=== PATIENT | female | born 1995 | race African-American/Black ===

== ENCOUNTER 2016-11-27 13:57 | Emergency (ER) | payer SELFPAY ==
[~2016-11-27] VITALS: Ht 162.6 cm; Wt 129.0 kg
[~2016-11-27 13:57] MED LIST: BACT800T5 PO; PENI500T PO
[2016-11-27 13:59] VITALS: BP 134/74; PULSE 96; RESP 20; TEMP 98; O2SAT 99
[2016-11-27 15:29] LABS: BLOOD, URINE NEG (NEG); GLUCOSE,URINE NEG (NEG); KETONE, URINE NEG (NEG); MUCUS URINE MOD /lpf (OCC); NITRITE,URINE NEG (NEG); PH, URINE 5.5 (5.0-8.5); SQUAMOUS EPITHELIAL CELL URINE 1 /hpf (0-5); URINE COLOR YELLOW (YELLW/STRAW)
[2016-11-27 15:31] LABS: COMMENT (UR) CULT NOT INDICATED; CULTURE IF INDICATED CULT NOT INDICATED
[2016-11-27] MEDS ORDERED: LIDOCAINE 1%/EPINEPHrine 1:100,000 SOLN 20 ML VIAL INFIL ONE (16:45)
[2016-11-27] MEDS ORDERED: LIDOCAINE HCL 1% 50 ML VIAL IM ONE (16:45)
[2016-11-27] MEDS ORDERED: AZITHROMYCIN PWD FOR SUSP 1 GM PACKET PO ONE (16:45)
--- NOTE | 2016-11-27 16:49 | PD ---
HPI Chief Complaint: Transportation Dispatcher Problem/Complaint Time Seen by Provider: 16:46 Travel History International Travel<30 days: No Contact w/Intl Traveler<30days: No Traveled to known affect area: No History of Present Illness HPI 21-year-old female presents to ED for evaluation of 3 day history of vaginal itching and white vaginal discharge. Patient states onset gradual. She endorses unprotected sex with a single male partner approximately 2 weeks ago. She endorses last menstrual period approximately one week ago. Patient also complains of pain and swelling under the right axilla. She states that she's had similar "bumps" in the past. She states that she applied warm compresses but has been unable to improve her symptoms. She denies fever, chills, limitations to range of motion or weakness of the right arm. She denies chronic health problems, takes no daily medications. NKDA. PFSH Past Medical History Medical History: Denies Significant Hx Cardiovascular Problems: No Psychiatric: No Seizures: No Thyroid Disease: No Ulcer: No ?: Unknown LMP: 11/20/16 Past Surgical History Other Surgery: Yes (PINS IN HIPS) Social History Alcohol Use: Yes (social) Tobacco Use: No Substance Use: Yes (marijuana 2 hrs ago) Allergies-Medications (Allergen,Severity, Reaction): Coded Allergies: No Known Allergies (Verified , 11/27/16) Reported Meds & Prescriptions Reported Meds & Active Scripts Active Clindamycin (Clindamycin HCl) 300 Mg Cap 300 Mg PO TID Review of Systems Except as stated in HPI: all other systems reviewed are Neg Physical Exam Narrative GENERAL: Well-nourished, well-developed obese black female in no acute distress. SKIN: Warm and dry. SKIN: There is an indurated area in the right axilla which measures about 2.5 cm in diameter. It is fluctuant but there is no pointing or drainage. There is a zone of inflammation around it but no lymphangitis. HEAD: Normocephalic. EYES: No scleral icterus. No injection or drainage. NECK: Supple, trachea midline. No JVD or lymphadenopathy. CARDIOVASCULAR: Regular rate and rhythm without murmurs, gallops, or rubs. RESPIRATORY: Breath sounds equal bilaterally. No accessory muscle use. GASTROINTESTINAL: Abdomen protuberant, soft, non-tender, nondistended. No suprapubic tenderness. Active bowel sounds. GENITOURINARY: Normal external genitalia without lesions or erythema. Mild fishy odor. Vaginal vault without blood. Thin white drainage. Cervical os was closed without drainage. No cervical motion tenderness. Uterus nontender and nonenlarged. Bilateral adnexa nontender without masses. MUSCULOSKELETAL: No cyanosis, or edema. BACK: Nontender without obvious deformity. No CVA tenderness. Data Data Last Documented VS Vital Signs Date Time Temp Pulse Resp B/P Pulse Ox O2 Delivery O2 Flow Rate FiO2 11/27/16 17:46 91 17 132/73 97 Room Air 11/27/16 13:59 98.0 Orders Urinalysis - C+S If Indicated (11/27/16 14:52) Ed Urine Pregnancytest Poc (11/27/16 14:52) Gc And Chlamydia Pcr (11/27/16 16:43) Wet Prep Profile (11/27/16 16:43) Azithromycin Powd Pack (Zithromax Powd P (11/27/16 16:45) Lidocaine 1% Inj (50 Ml) (Xylocaine 1% I (11/27/16 16:45) Ceftriaxone Inj (Rocephin Inj) (11/27/16 16:45) Wound Culture And Gram Stain (11/27/16 16:43) Lidocai-Epi 1%-1:100,000 Inj (Xylocaine- (11/27/16 16:45) Labs Laboratory Tests Test 11/27/16 11/27/16 15:00 17:16 Urine Color YELLOW Urine Turbidity CLEAR Urine pH 5.5 Urine Specific [place] 1.028 Urine Protein TRACE mg/dL Urine Glucose (UA) NEG mg/dL Urine Ketones NEG mg/dL Urine Occult Blood NEG Urine Nitrite NEG Urine Bilirubin NEG Urine Urobilinogen LESS THAN 2.0 MG/DL Urine Leukocyte Esterase NEG Urine RBC 1 /hpf Urine WBC 2 /hpf Urine Squamous Epithelial 1 /hpf Cells Urine Mucus MOD /lpf Microscopic Urinalysis Comment CULT NOT INDICATED Clue Cells (Wet Prep) NONE SEEN Vaginal Trichomonas (Wet Prep) NONE SEEN Vaginal Yeast (Wet Prep) NONE SEEN MDM Medical Decision Making Medical Screen Exam Complete: Yes Emergency Medical Condition: Yes Differential Diagnosis Folliculitis versus furuncle versus carbuncle versus abscess versus STI versus UTI versus versus other Narrative Course 21-year-old female presents to ED for evaluation of 3 day history of vaginal itching and white vaginal discharge. Patient states onset gradual. She endorses unprotected sex with a single male partner approximately 2 weeks ago. LMP 1 week ago Patient also complains of pain and swelling under the right axilla. Denies fever, chills, limitations to range of motion or weakness of the right arm. Vitals reviewed. Physical exam reveals a nontoxic-appearing black female in no acute distress. There is a 2 cm abscess under the right axilla. No pointing or drainage. The abdomen is soft and nontender. Pelvic exam reveals a thin amount of white, fishy discharge. No adnexal or cervical motion tenderness. Abscess I&D was performed. Please see my procedure note for details. Patient was empirically treated for GC and chlamydia. No indication for culture of the UA. Wet prep was also negative, bad table noted for clue cells. We'll treat the abscess with clindamycin. I discussed this plan of care with Dr. Birmingham. Discussed the results of the workup with the patient. He is instructed to take the antibiotics as prescribed, return to the ED for packing removal in 2 days, follow up with the emergency room in 7 days for test of cure and full STD screening. She indicated understanding of the instructions. She is amenable to plan of care. She is stable and discharged home. Procedures Procedure Narrative INCISION AND DRAINAGE OF ABSCESS: The area was prepped and was sterilely draped. A subcutaneous wheal of 1% Xylocaine with epinephrine with a total number 3 mL was used to anesthetize the area properly. A number 11 scalpel was used to make a 1-cm incision across the area of the abscess. The abscess was drained, complex loculations were broken down, and irrigated with normal saline. Cultures were obtained. Quarter inch iodoform packing was placed in the wound. Sterile dressing applied. Patient advised to have packing removed in two days. Diagnosis Primary Impression: Abscess Referrals: Primary Care Physician Patient Instructions: Abscess Incision and Drainage (ED), General Instructions Additional Instructions: Rest, hydrate. Take all antibiotics as prescribed, even if her symptoms resolve. Return to the ED for packing removal and wound recheck in 2 days. Follow-up with the health department in one week for test of cure and full STD screening. Follow-up with primary care provider this week. Return to the ED for any urgent or emergent medical condition. Med/Other Pt SpecificInfo: Prescription(s) given Scripts Clindamycin 300 Mg [id number] Mg PO TID #21 CAP Ref 0 Prov:Giovanna Birmingham MD 11/27/16 Disposition: 01 DISCHARGE HOME Condition: Stable Samira Watson Nov 27, 2016 16:49
[2016-11-27] MEDS ORDERED: CLIN1CAP6 PO (17:37)
[2016-11-27 17:46] VITALS: BP 132/73; PULSE 91; RESP 17; O2SAT 97
--- NOTE | 2016-11-27 17:46 | PD ---
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 Data Data Last Documented VS Vital Signs Date Time Temp Pulse Resp B/P Pulse Ox O2 Delivery O2 Flow Rate FiO2 11/27/16 13:59 98.0 96 20 134/74 99 Room Air Orders Urinalysis - C+S If Indicated (11/27/16 14:52) Ed Urine Pregnancytest Poc (11/27/16 14:52) Gc And Chlamydia Pcr (11/27/16 16:43) Wet Prep Profile (11/27/16 16:43) Azithromycin Powd Pack (Zithromax Powd P (11/27/16 16:45) Lidocaine 1% Inj (50 Ml) (Xylocaine 1% I (11/27/16 16:45) Ceftriaxone Inj (Rocephin Inj) (11/27/16 16:45) Wound Culture And Gram Stain (11/27/16 16:43) Lidocai-Epi 1%-1:100,000 Inj (Xylocaine- (11/27/16 16:45) Labs Laboratory Tests Test 11/27/16 11/27/16 15:00 17:16 Urine Color YELLOW Urine Turbidity CLEAR Urine pH 5.5 Urine Specific [place] 1.028 Urine Protein TRACE mg/dL Urine Glucose (UA) NEG mg/dL Urine Ketones NEG mg/dL Urine Occult Blood NEG Urine Nitrite NEG Urine Bilirubin NEG Urine Urobilinogen LESS THAN 2.0 MG/DL Urine Leukocyte Esterase NEG Urine RBC 1 /hpf Urine WBC 2 /hpf Urine Squamous Epithelial 1 /hpf Cells Urine Mucus MOD /lpf Microscopic Urinalysis Comment CULT NOT INDICATED Clue Cells (Wet Prep) NONE SEEN Vaginal Trichomonas (Wet Prep) NONE SEEN Vaginal Yeast (Wet Prep) NONE SEEN MDM Supervised Visit with [facility]: Yes Diagnosis Primary Impression: Abscess Referrals: Primary Care Physician Patient Instructions: General Instructions, Abscess Incision and Drainage (ED) Departure Forms: Tests/Procedures Additional Instruction: Rest, hydrate. Take all antibiotics as prescribed, even if her symptoms resolve. Return to the ED for packing removal and wound recheck in 2 days. Follow-up with the health department in one week for test of cure and full STD screening. Follow-up with primary care provider this week. Return to the ED for any urgent or emergent medical condition. Scripts Clindamycin 300 Mg [id number] Mg PO TID #21 CAP Ref 0 Prov:Giovanna Birmingham MD 11/27/16 Disposition: 01 DISCHARGE HOME Condition: Stable Giovanna Birmingham MD Nov 27, 2016 17:46
[2016-11-27 20:12] LABS: CHLAMYDIA PCR NOT DETECTED (NOT DETECT); NEISSERIA PCR NOT DETECTED (NOT DETECT)
== END 2016-11-27 17:47 | disposition home or self-care (01) ==
LOC: NEPA 13:57
DX: L02.411 Cutaneous abscess of right axilla (principal); B95.61 Methicillin susceptible Staphylococcus aureus infection as the cause of diseases classified elsewhere
CPT/HCPCS: 10061; 81001; 84703; 86403; 87070; 87077; 87185; 87186; 87210; 87491; 87591; 96372; 99283; J0696; 87205

== ENCOUNTER 2016-11-29 09:11 | Emergency (ER) | payer SELFPAY ==
[~2016-11-29] VITALS: Ht 162.6 cm; Wt 129.0 kg
[~2016-11-29 09:11] MED LIST changes: -BACT800T5 PO; +CLIN1CAP6 PO; -PENI500T PO
[2016-11-29 09:12] VITALS: BP 150/80; PULSE 73; RESP 16; TEMP 98.2; O2SAT 98
--- NOTE | 2016-11-29 11:16 | PD ---
HPI Chief Complaint: Wound/Suture/Staple Re-Check Time Seen by Provider: 11:12 Travel History International Travel<30 days: No Contact w/Intl Traveler<30days: No Traveled to known affect area: No History of Present Illness HPI Patient comes in for recheck of abscess right axilla I&D 2 days ago. Patient denies any complaints or problems with it. States it is pain is improved and is only minimally tender now. Patient denies any fevers. PFSH Past Medical History Cardiovascular Problems: No Psychiatric: No Seizures: No Thyroid Disease: No Ulcer: No ?: Not Past Surgical History Other Surgery: Yes (PINS IN HIPS) Social History Alcohol Use: Yes (social) Tobacco Use: No Substance Use: Yes (marijuana 2 hrs ago) Allergies-Medications (Allergen,Severity, Reaction): Coded Allergies: No Known Allergies (Verified , 11/27/16) Reported Meds & Prescriptions Reported Meds & Active Scripts Active Clindamycin (Clindamycin HCl) 300 Mg Cap 300 Mg PO TID Review of Systems Except as stated in HPI: all other systems reviewed are Neg Physical Exam Narrative GENERAL: Well-developed, overly nourished, in no acute distress, and non-ill appearing. SKIN: Warm and dry. Well healing abscess to the right axilla packing in place. Packing was removed with no drainage noted. Minimally tender. Minimal erythematous. HEAD: Atraumatic. Normocephalic. EYES: Pupils equal and round. EOMI. No scleral icterus. No injection or drainage. ENT: No nasal bleeding or discharge. Mucous membranes pink and moist. NECK: Trachea midline. Supple. No nuclear rigidity. RESPIRATORY: No accessory muscle use. No respiratory distress. MUSCULOSKELETAL: No obvious deformities. No clubbing. No cyanosis. No edema. Full range of motion. NEUROLOGICAL: Awake and alert. No obvious cranial nerve deficits. Motor grossly within normal limits. Normal speech. PSYCHIATRIC: Appropriate mood and affect; insight and judgment normal. Data Data Last Documented VS Vital Signs Date Time Temp Pulse Resp B/P Pulse Ox O2 Delivery O2 Flow Rate FiO2 11/29/16 09:12 98.2 73 16 150/80 98 Room Air MDM Medical Decision Making Medical Screen Exam Complete: Yes Emergency Medical Condition: No Differential Diagnosis Wound recheck, worsening infection, other Narrative Course Patient in no obvious distress upon re-evaluation. Any questions/concerns in reference to patient diagnosis/condition discussed and clarified prior to patient's discharge. Reinforced sheer importance of close follow up with patient 's primary physician or primary care clinic. Instructed patient to return to ED immediately, if symptoms return/worsen. Pt showed understanding of above instructions. Further instructions and recommendations were detailed in discharge paperwork. Pt ambulated without difficulty out of ED at discharge. Diagnosis Primary Impression: Encounter for recheck of abscess following incision and drainage Patient Instructions: Abscess Follow-up (ED), General Instructions Additional Instructions: Follow-up with your primary care physician this week for recheck. Take all medication as previously prescribed. Return to the emergency department if symptoms get worse. Disposition: 01 DISCHARGE HOME Condition: Stable Rodney Collier Nov 29, 2016 11:16
== END 2016-11-29 11:26 | disposition home or self-care (01) ==
LOC: NEPB 09:11
DX: L02.91 Cutaneous abscess, unspecified (principal); Z09 Encounter for follow-up examination after completed treatment for conditions other than malignant neoplasm
CPT/HCPCS: 99281